=== PATIENT | male | born 1970 | race Caucasian/White ===

== ENCOUNTER 2020-07-25 16:23 | Emergency (ER) | payer MEDICAID ==
[2020-07-25 17:19] LABS: HEMOGLOBIN 14.9 gm/dl (14.0-17.5); RED BLOOD COUNT 4.84 M/UL (4.20-5.50); WHITE BLOOD COUNT 16.2 K/UL (4.5-11.0)
[2020-07-25] MEDS ORDERED: FLOMAX0.4 MG PO (18:07)
== END 2020-07-25 18:26 | disposition home or self-care (01) ==
LOC: ER1 16:23
PROVIDERS: Physician Assistant
DX: N13.2 Hydronephrosis with renal and ureteral calculous obstruction (principal); N17.9 Acute kidney failure, unspecified; Z90.49 Acquired absence of other specified parts of digestive tract; Z88.2 Allergy status to sulfonamides
CPT/HCPCS: 80053; 81001; 85025; 96374; 96375; 99284; J2270; J2405

== ENCOUNTER → 2020-07-31 | Outpatient (CLI) | payer MEDICAID ==
[~2020-07-31] MED LIST: FLOMAX0.4 MG PO
== END ==
LOC: RAD 12:04
DX: N20.0 Calculus of kidney (principal)
CPT/HCPCS: 74018